=== PATIENT | female | born 2000 | race African-American/Black ===

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

== ENCOUNTER 2025-01-01 15:50 | Emergency (ER) | payer MEDICAID ==
[~2025-01-01] VITALS: Ht 175.3 cm; Wt 55.0 kg
[2025-01-01 15:56] VITALS: TEMP 36.9; O2SAT 100
[2025-01-01 15:58] VITALS: O2SAT 98
[2025-01-01 20:31] VITALS: BP 109/65; PULSE 74; RESP 18
[2025-01-01] MEDS: TRAMADOL 50MG TABLET PO ONE (20:31)
[2025-01-01] MEDS: IBUPROFEN 600MG TABLET PO ONE (20:31)
== END 2025-01-01 22:30 | disposition home or self-care (01) ==
LOC: ER 15:50
DX: S92.501A Displaced unspecified fracture of right lesser toe(s), initial encounter for closed fracture (principal); J45.909 Unspecified asthma, uncomplicated; W22.03XA Walked into furniture, initial encounter; Y93.89 Activity, other specified; Y92.89 Other specified places as the place of occurrence of the external cause; Y99.8 Other external cause status
CPT/HCPCS: 73660; 99283; A6449; Z7610